=== PATIENT | female | born 1985 | race Caucasian/White ===

== ENCOUNTER 2017-03-21 14:42 | Emergency (ER) | payer OTHER ==
[~2017-03-21 14:42] MED LIST: AMOXICILLIN500 M3 PO; AMOXICILLIN500 MG PO; ANAPROX DS550 MG PO; AUGMENTIN 875 M1 TAB PO; BIAXIN500 MG PO; CATAFLAM50 MG PO; CIPRODEX 0.3%-7.5 ML OT; CLARITIN10 MG PO; DAYPRO600 M1 PO; FLEXERIL10 MG PO; FLEXERIL5 MG PO; LISINOPRIL10 M1 PO; MOTRIN800 MG PO; MULTI-FLAVOR CH1 CTB PO; NAPROSYN500 MG PO; NKHM; NKHM PO; PERCOCET 325 MG1 TA2 PO; PERCOCET 325 MG1 TA5 PO; ROBAXIN750 MG PO; ULTRAM50 MG PO; ZOFRAN4 MG PO
[2017-03-21 14:52] VITALS: BP 125/70
[2017-03-21 15:30] LABS: BILIRUBIN NEGATIVE (NEGATIVE); BLOOD 1+ (NEGATIVE); CLARITY SL CLOUDY (CLEAR); COLOR YELLOW (YELLOW); GLUCOSE NEGATIVE (NEGATIVE); KETONE NEGATIVE (NEGATIVE); LEUKO ESTERASE NEGATIVE (NEGATIVE); NITRITE NEGATIVE (NEGATIVE); SPECIFIC GRAVITY >= 1.030 (1.005-1.030)
[2017-03-21 15:51] LABS: BACTERIA 4+; RBC 0-2 rbc/hpf (0-2)
[2017-03-21] MEDS ORDERED: VIBRAMYCIN100 MG PO (15:58)
[2017-03-21] MEDS ORDERED: ANAPROX DS550 MG PO (15:58)
== END 2017-03-21 16:17 | disposition home or self-care (01) ==
LOC: ED 14:42
PROVIDERS: Physician Assistant
DX: N30.01 Acute cystitis with hematuria (principal)

== ENCOUNTER 2017-05-27 15:39 | Emergency (ER) | payer OTHER ==
[~2017-05-27] VITALS: Wt 59.0 kg
[~2017-05-27 15:39] MED LIST changes: +VIBRAMYCIN100 MG PO
[2017-05-27] MEDS ORDERED: RITALIN LA20 MG PO (15:47)
[2017-05-27 15:50] VITALS: BP 120/63
== END 2017-05-27 16:08 | disposition home or self-care (01) ==
LOC: ED 15:39
DX: L50.9 Urticaria, unspecified (principal); Z87.440 Personal history of urinary (tract) infections; Z79.899 Other long term (current) drug therapy

== ENCOUNTER 2017-05-30 16:35 | Emergency (ER) | payer OTHER ==
[~2017-05-30] VITALS: Ht 162.5 cm; Wt 59.0 kg
[~2017-05-30 16:35] MED LIST changes: +RITALIN LA20 MG PO
[2017-05-30 16:43] VITALS: BP 129/90
[2017-05-30] MEDS ORDERED: ANAPROX DS550 MG PO (18:13)
[2017-05-30] MEDS ORDERED: ROBAXIN500 M1 PO (18:13)
== END 2017-05-30 18:28 | disposition home or self-care (01) ==
LOC: ED 16:35
DX: S16.1XXA Strain of muscle, fascia and tendon at neck level, initial encounter (principal); M54.5 Low back pain; Z79.899 Other long term (current) drug therapy; V43.52XA Car driver injured in collision with other type car in traffic accident, initial encounter; Y93.89 Activity, other specified; Y92.89 Other specified places as the place of occurrence of the external cause; Y99.8 Other external cause status

== ENCOUNTER 2017-06-14 21:53 | Emergency (ER) | payer OTHER ==
[~2017-06-14] VITALS: Ht 162.5 cm; Wt 61.2 kg
--- NOTE | ~2017-06-14 | EKG ---
[place], [place] ELECTROCARDIOGRAM REPORT NAME: CARI GUTIERREZ UNIT #: [id number] ROOM: DOCTOR: MELLO DICKSON MD BIRTHDATE: [birth year] DOS: 06/14/2017 TIME: 2301 hours. IMPRESSION: 1. Normal sinus rhythm at 86 beats per minute. 2. Short [place] interval. 3. No evidence of ischemia or infarction. 4. When compared with an ECG done at 2204 hours of the same day, no significant change has become evident. MELLO DICKSON MD CM:EKGRPT:ELECTROCARDIOGRAM REPORT [id number] MELLO DICKSON MD
--- NOTE | ~2017-06-14 | EKG ---
[place], [place] ELECTROCARDIOGRAM REPORT NAME: CARI GUTIERREZ UNIT #: [id number] ROOM: DOCTOR: MELLO DICKSON MD BIRTHDATE: [birth year] DOS: 06/14/2017 TIME: 2236 hours. IMPRESSION: 1. Normal sinus rhythm at 96 beats per minute. 2. Short [place] interval. 3. The tracing is otherwise normal. 4. No significant change from the ECG done about half an hour earlier. MELLO DICKSON MD CM:EKGRPT:ELECTROCARDIOGRAM REPORT [id number] MELLO DICKSON MD
--- NOTE | ~2017-06-14 | EKG ---
[place], [place] ELECTROCARDIOGRAM REPORT NAME: CARI GUTIERREZ UNIT #: [id number] ROOM: DOCTOR: MELLO DICKSON MD BIRTHDATE: [birth year] DOS: 06/14/2017 TIME: 2204 hours. IMPRESSION: 1. Sinus tachycardia at 103 beats per minute. 2. The tracing is normal. 3. No previous tracing is available for comparison. MELLO DICKSON MD CM:EKGRPT:ELECTROCARDIOGRAM REPORT [id number] MELLO DICKSON MD
[~2017-06-14 21:53] MED LIST changes: +ROBAXIN500 M1 PO
[2017-06-14 22:09] LABS: BASO # 0.1 10*3/uL (0.0-0.1); BASO % 0.9 % (0.0-1.0); EOS # 0.2 10*3/uL (0.0-0.4); EOS % 2.8 % (1.0-4.0); HEMATOCRIT 41.5 % (37.0-47.0); HEMOGLOBIN 13.6 g/dl (12.0-16.0); LYMPH # 1.2 10*3/uL (1.3-4.4); LYMPH % 20.9 % (27.0-41.0); MEAN CORPUSCULAR HGB 29.8 pg (27.0-31.0); MEAN CORPUSCULAR HGB CONC 32.8 g/dl (33.0-37.0); MEAN PLATELET VOLUME 9.6 fl (9.6-12.3); MONO # 0.3 10*3/uL (0.1-1.0); MONO % 5.6 % (3.0-9.0); NEUT % 69.3 % (47.0-73.0); PLATELET COUNT AUTOMATED 241 10*3/uL (130-400); RED BLOOD COUNT 4.56 10*6/uL (4.10-5.10); RED CELL DISTRI WIDTH 12.7 % (0-14.5); WHITE BLOOD COUNT 5.7 10*3/uL (4.8-10.8)
[2017-06-14 22:19] LABS: ACT PARTIAL THROMBO TIME 25.1 SECONDS (20.8-31.5); INTERNATIONAL NORM RATIO 1.1 (2.0-3.5)
[2017-06-14 22:26] LABS: ALBUMIN 4.2 gm/dl (3.1-4.5); ALKALINE PHOSPHATASE 63 U/L (45-117); BUN 10 mg/dl (7-24); CHLORIDE 103 mmol/L (98-107); CREATININE 0.79 mg/dL (0.55-1.02); POTASSIUM 3.6 mmol/L (3.5-5.1); SGOT/AST 7 IU/L (3-35); SGPT/ALT 14 U/L (12-78); SODIUM 139 mmol/L (136-145); TOTAL PROTEIN 7.8 gm/dL (6.4-8.2)
[2017-06-14 22:27] LABS: TROPONIN I < 0.015 ng/ml (<0.045)
[2017-06-14] MEDS ORDERED: KETOROLAC10 MG PO (23:16)
[2017-06-14 23:20] VITALS: BP 133/87
== END 2017-06-14 23:49 | disposition home or self-care (01) ==
LOC: ED 21:53
PROVIDERS: Emergency Medicine Emergency Medical Services
DX: R07.89 Other chest pain (principal); R42 Dizziness and giddiness; M54.5 Low back pain; R11.0 Nausea

== ENCOUNTER 2018-02-11 21:58 | Emergency (ER) | payer OTHER ==
[~2018-02-11] VITALS: Wt 59.0 kg
[~2018-02-11 21:58] MED LIST changes: +KETOROLAC10 MG PO
[2018-02-11 22:00] VITALS: BP 113/71
[2018-02-11 22:32] LABS: BILIRUBIN 1+ (NEGATIVE); BLOOD 3+ (NEGATIVE); CLARITY CLOUDY (CLEAR); COLOR RED (YELLOW); GLUCOSE NEGATIVE (NEGATIVE); KETONE TRACE (NEGATIVE); LEUKO ESTERASE TRACE (NEGATIVE); NITRITE POSITIVE (NEGATIVE); PH 7.5 (5.0-9.0); SPECIFIC GRAVITY 1.015 (1.005-1.030); UROBILINOGEN >= 8.0 E.U./dl (0.2-1.0)
[2018-02-11 22:41] LABS: RBC TNTC rbc/hpf (0-2)
[2018-02-11] MEDS ORDERED: AMINOPHYLLIN200 MG PO (22:50)
[2018-02-11] MEDS ORDERED: PYRIDIUM200 M1 PO (22:50)
[2018-02-27] MEDS ORDERED: ADDERALL 30 MG30 MG PO (19:29)
[2018-02-27] MEDS ORDERED: PERCOCET 5-3251 EACH PO (19:30)
[2018-02-27] MEDS ORDERED: JUNEL 1 MG-201 EACH PO (19:32)
== END 2018-02-11 22:56 | disposition home or self-care (01) ==
LOC: ED 21:58
PROVIDERS: Physician Assistant
DX: N39.0 Urinary tract infection, site not specified (principal); R31.9 Hematuria, unspecified; Z98.890 Other specified postprocedural states

== ENCOUNTER 2018-02-24 07:38 | Emergency (ER) | payer OTHER ==
[~2018-02-24] VITALS: Ht 162.5 cm; Wt 59.0 kg
[~2018-02-24 07:38] MED LIST changes: +AMINOPHYLLIN200 MG PO; +PYRIDIUM200 M1 PO
[2018-02-24 07:40] VITALS: BP 131/77
[2018-02-24 08:00] LABS: BASO # 0.1 10*3/uL (0.0-0.1); BASO % 0.7 % (0.0-1.0); EOS # 0.2 10*3/uL (0.0-0.4); EOS % 1.4 % (1.0-4.0); HEMATOCRIT 40.3 % (37.0-47.0); HEMOGLOBIN 12.8 g/dl (12.0-16.0); LYMPH # 1.6 10*3/uL (1.3-4.4); LYMPH % 13.6 % (27.0-41.0); MEAN CELL VOLUME 93.7 fl (81.0-99.0); MEAN CORPUSCULAR HGB 29.8 pg (27.0-31.0); MEAN CORPUSCULAR HGB CONC 31.8 g/dl (33.0-37.0); MEAN PLATELET VOLUME 9.8 fl (9.6-12.3); MONO # 0.4 10*3/uL (0.1-1.0); MONO % 2.9 % (3.0-9.0); NEUT # 9.6 10*3/uL (2.3-7.9); PLATELET COUNT AUTOMATED 289 10*3/uL (130-400); WHITE BLOOD COUNT 11.9 10*3/uL (4.8-10.8)
[2018-02-24 08:14] LABS: ALBUMIN 4.2 gm/dl (3.1-4.5); ALKALINE PHOSPHATASE 54 U/L (45-117); BUN 10 mg/dl (7-24); CHLORIDE 105 mmol/L (98-107); CREATININE 1.13 mg/dL (0.55-1.02); LIPASE 175 U/L (73-393); POTASSIUM 3.5 mmol/L (3.5-5.1); SGOT/AST 13 IU/L (3-35); SGPT/ALT 20 U/L (12-78); SODIUM 138 mmol/L (136-145); TOTAL PROTEIN 7.6 gm/dL (6.4-8.2)
[2018-02-24 08:31] LABS: BILIRUBIN 1+ (NEGATIVE); BLOOD 2+ (NEGATIVE); CLARITY CLOUDY (CLEAR); COLOR ORANGE (YELLOW); GLUCOSE 2+ (NEGATIVE); KETONE 1+ (NEGATIVE); NITRITE POSITIVE (NEGATIVE); SPECIFIC GRAVITY 1.025 (1.005-1.030); UROBILINOGEN >= 8.0 E.U./dl (0.2-1.0)
[2018-02-24 08:37] LABS: LEUKO ESTERASE TRACE (NEGATIVE); WBC TNTC wbc/hpf (0-5)
[2018-02-24 08:38] LABS: RBC TNTC rbc/hpf (0-2)
[2018-02-27] MEDS ORDERED: ADDERALL 30 MG30 MG PO (19:29)
[2018-02-27] MEDS ORDERED: PERCOCET 5-3251 EACH PO (19:30)
[2018-02-27] MEDS ORDERED: JUNEL 1 MG-201 EACH PO (19:32)
== END 2018-02-24 09:59 | disposition short-term general hospital (02) ==
LOC: ED 07:38
PROVIDERS: Emergency Medicine
DX: N13.2 Hydronephrosis with renal and ureteral calculous obstruction (principal)

== ENCOUNTER 2018-03-02 16:20 | Emergency (ER) | payer OTHER ==
[~2018-03-02] VITALS: Ht 162.5 cm; Wt 59.0 kg
[2018-03-02 16:20] VITALS: BP 122/77
[~2018-03-02 16:20] MED LIST changes: +ADDERALL 30 MG30 MG PO; +JUNEL 1 MG-201 EACH PO; +PERCOCET 5-3251 EACH PO
[2018-03-02 16:55] LABS: BASO # 0.1 10*3/uL (0.0-0.1); BASO % 1.1 % (0.0-1.0); EOS # 0.4 10*3/uL (0.0-0.4); EOS % 4.7 % (1.0-4.0); HEMATOCRIT 37.7 % (37.0-47.0); HEMOGLOBIN 11.6 g/dl (12.0-16.0); LYMPH # 0.9 10*3/uL (1.3-4.4); LYMPH % 10.5 % (27.0-41.0); MEAN CELL VOLUME 95.4 fl (81.0-99.0); MEAN CORPUSCULAR HGB 29.4 pg (27.0-31.0); MEAN CORPUSCULAR HGB CONC 30.8 g/dl (33.0-37.0); MONO # 0.4 10*3/uL (0.1-1.0); MONO % 4.7 % (3.0-9.0); NEUT # 6.3 10*3/uL (2.3-7.9); NEUT % 78.6 % (47.0-73.0); PLATELET COUNT AUTOMATED 261 10*3/uL (130-400); RED BLOOD COUNT 3.95 10*6/uL (4.10-5.10); RED CELL DISTRI WIDTH 12.8 % (0-14.5); WHITE BLOOD COUNT 8.1 10*3/uL (4.8-10.8)
[2018-03-02 17:14] LABS: ALBUMIN 3.7 gm/dl (3.1-4.5); ALKALINE PHOSPHATASE 53 U/L (45-117); BUN 10 mg/dl (7-24); CHLORIDE 106 mmol/L (98-107); CREATININE 1.26 mg/dL (0.55-1.02); POTASSIUM 3.8 mmol/L (3.5-5.1); SGOT/AST 10 IU/L (3-35); SGPT/ALT 21 U/L (12-78); SODIUM 140 mmol/L (136-145); TOTAL PROTEIN 7.3 gm/dL (6.4-8.2)
[2018-03-02] MEDS ORDERED: MIRALAX17 GM PO (17:57)
[2018-03-02] MEDS ORDERED: ZOFRAN ODT4 MG SL (17:57)
== END 2018-03-02 18:07 | disposition home or self-care (01) ==
LOC: ED 16:20
PROVIDERS: Physician Assistant
DX: N20.0 Calculus of kidney (principal); R11.2 Nausea with vomiting, unspecified; K59.00 Constipation, unspecified; Z87.442 Personal history of urinary calculi

== ENCOUNTER 2019-06-03 21:33 | Emergency (ER) | payer OTHER ==
[~2019-06-03] VITALS: Ht 162.5 cm; Wt 68.0 kg
[~2019-06-03 21:33] MED LIST changes: +MIRALAX17 GM PO; +MONISTAT 11 EACH V; +ZOFRAN ODT4 MG SL
[2019-06-03 21:35] VITALS: BP 132/99
== END 2019-06-03 22:27 | disposition home or self-care (01) ==
LOC: ED 21:33
DX: J06.9 Acute upper respiratory infection, unspecified (principal)

== ENCOUNTER 2019-10-02 18:32 | Emergency (ER) | payer OTHER ==
[~2019-10-02] VITALS: Ht 162.5 cm; Wt 68.0 kg
[2019-10-02 18:39] VITALS: BP 140/82
[2019-10-02] MEDS ORDERED: ZOVIRAX5 GM T (20:22)
[2019-10-02] MEDS ORDERED: VALTREX500 MG PO (20:22)
== END 2019-10-02 20:32 | disposition home or self-care (01) ==
LOC: ED 18:32
DX: J40 Bronchitis, not specified as acute or chronic (principal); K13.79 Other lesions of oral mucosa

== ENCOUNTER 2020-04-13 19:01 | Emergency (ER) | payer OTHER ==
[~2020-04-13] VITALS: Wt 65.8 kg
[~2020-04-13 19:01] MED LIST changes: +VALTREX500 MG PO; +ZOVIRAX5 GM T
[2020-04-13 19:10] VITALS: BP 118/75
== END 2020-04-13 20:26 | disposition home or self-care (01) ==
LOC: ED 19:01
DX: H60.501 Unspecified acute noninfective otitis externa, right ear (principal)

== ENCOUNTER 2020-09-03 13:41 | Emergency (ER) | payer OTHER ==
[~2020-09-03] VITALS: Ht 162.5 cm; Wt 65.8 kg
[2020-09-03 14:54] VITALS: BP 106/72
== END 2020-09-03 14:48 | disposition home or self-care (01) ==
LOC: ED 13:41
DX: R03.0 Elevated blood-pressure reading, without diagnosis of hypertension (principal); R51.9 Headache, unspecified; Z98.890 Other specified postprocedural states; Z87.442 Personal history of urinary calculi

== ENCOUNTER → 2020-09-04 | Outpatient (CLI) | payer OTHER | END | disposition home or self-care (01) | LOC: RAD 12:49 | PROVIDERS: ATTEND Chiropractor Orthopedic | DX: M43.16 Spondylolisthesis, lumbar region (principal); M47.817 Spondylosis without myelopathy or radiculopathy, lumbosacral region; M99.03 Segmental and somatic dysfunction of lumbar region ==

== ENCOUNTER 2020-11-25 12:38 | Emergency (ER) | payer OTHER ==
[~2020-11-25] VITALS: Ht 165.1 cm; Wt 65.8 kg
[2020-11-25 13:51] VITALS: BP 122/78
[2020-11-25 14:46] LABS: BASO # 0.1 10*3/uL (0.0-0.1); BASO % 1.1 % (0.0-1.0); EOS # 0.3 10*3/uL (0.0-0.4); EOS % 5.5 % (1.0-4.0); HEMATOCRIT 33.5 % (37.0-47.0); LYMPH # 1.8 10*3/uL (1.3-4.4); LYMPH % 28.7 % (27.0-41.0); MEAN CELL VOLUME 82.1 fl (81.0-99.0); MEAN CORPUSCULAR HGB CONC 29.3 g/dl (33.0-37.0); MEAN PLATELET VOLUME 9.4 fl (9.6-12.3); MONO # 0.4 10*3/uL (0.1-1.0); NEUT # 3.5 10*3/uL (2.3-7.9); NEUT % 57.4 % (47.0-73.0); PLATELET COUNT AUTOMATED 367 10*3/uL (130-400); RED BLOOD COUNT 4.08 10*6/uL (4.10-5.10); RED CELL DISTRI WIDTH 14.2 % (0-14.5); WHITE BLOOD COUNT 6.2 10*3/uL (4.8-10.8)
[2020-11-25 15:06] LABS: ALBUMIN 3.7 gm/dl (3.1-4.5); ALKALINE PHOSPHATASE 67 U/L (45-117); BUN 11 mg/dl (7-24); CHLORIDE 108 mmol/L (98-107); CREATININE 0.92 mg/dL (0.55-1.02); POTASSIUM 4.4 mmol/L (3.5-5.1); SGOT/AST 9 IU/L (3-35); SGPT/ALT 14 U/L (12-78); SODIUM 142 mmol/L (136-145); TOTAL PROTEIN 7.2 gm/dL (6.4-8.2)
[2020-11-25 15:10] LABS: TROPONIN I < 0.015 ng/ml (<0.045)
== END 2020-11-25 16:52 | disposition home or self-care (01) ==
LOC: ED 12:38
PROVIDERS: Physician Assistant
DX: R00.2 Palpitations (principal); Z79.899 Other long term (current) drug therapy; Z98.890 Other specified postprocedural states

== ENCOUNTER 2020-12-07 00:04 | Emergency (ER) | payer OTHER ==
[~2020-12-07] VITALS: Ht 162.5 cm; Wt 68.0 kg
[2020-12-07 00:24] VITALS: BP 143/100
[2020-12-08] MEDS ORDERED: NAPROSYN500 MG PO (20:25)
== END 2020-12-07 03:07 | disposition home or self-care (01) ==
LOC: ED 00:04
DX: S00.03XA Contusion of scalp, initial encounter (principal); S00.83XA Contusion of other part of head, initial encounter; Z79.899 Other long term (current) drug therapy; Z87.442 Personal history of urinary calculi; Z98.890 Other specified postprocedural states; Y04.2XXA Assault by strike against or bumped into by another person, initial encounter; Y93.89 Activity, other specified; Y92.098 Other place in other non-institutional residence as the place of occurrence of the external cause; Y99.8 Other external cause status

== ENCOUNTER 2020-12-08 19:44 | Emergency (ER) | payer OTHER ==
[~2020-12-08] VITALS: Ht 165.1 cm; Wt 68.0 kg
[2020-12-08 20:16] VITALS: BP 124/82
[2020-12-08] MEDS ORDERED: NAPROSYN500 MG PO (20:25)
== END 2020-12-08 20:40 | disposition home or self-care (01) ==
LOC: ED 19:44
DX: R68.84 Jaw pain (principal); Z79.899 Other long term (current) drug therapy; Z98.890 Other specified postprocedural states

== ENCOUNTER → 2021-04-14 | Outpatient (CLI) | payer OTHER | END | disposition home or self-care (01) | LOC: COVID19 16:44 | PROVIDERS: ATTEND Hospitalist | DX: Z11.52 Encounter for screening for COVID-19 (principal) ==

== ENCOUNTER 2021-06-14 15:50 | Emergency (ER) | payer OTHER ==
[2021-06-14 16:06] VITALS: BP 114/73
== END 2021-06-14 18:52 | disposition home or self-care (01) ==
LOC: ED 15:50
DX: R51.9 Headache, unspecified (principal); Z20.822 Contact with and (suspected) exposure to COVID-19; R11.10 Vomiting, unspecified

== ENCOUNTER 2021-06-23 10:52 | Emergency (ER) | payer OTHER ==
[2021-06-23] MEDS ORDERED: PREDNISONE20 M1 PO (13:50)
[2021-06-23] MEDS ORDERED: ZITHROMAX250 MG PO (13:50)
[2021-06-23] MEDS ORDERED: PROVENTIL HFA6.7 GM INH (13:50)
[2021-06-23 14:15] VITALS: BP 140/89
== END 2021-06-23 15:57 | disposition home or self-care (01) ==
LOC: ED 10:52
DX: U07.1 COVID-19 (principal); J12.82 Pneumonia due to coronavirus disease 2019

== ENCOUNTER → 2021-08-13 | Outpatient (CLI) | payer OTHER ==
[~2021-08-13] MED LIST changes: +PREDNISONE20 M1 PO; +PROVENTIL HFA6.7 GM INH; +ZITHROMAX250 MG PO
== END | disposition home or self-care (01) ==
LOC: RAD 16:36
PROVIDERS: ATTEND Pediatrics
DX: S89.91XA Unspecified injury of right lower leg, initial encounter (principal); X58.XXXA Exposure to other specified factors, initial encounter; Y93.89 Activity, other specified; Y92.89 Other specified places as the place of occurrence of the external cause; Y99.8 Other external cause status

== ENCOUNTER 2022-06-28 02:35 | Emergency (ER) | payer OTHER ==
[~2022-06-28] VITALS: Ht 165.1 cm; Wt 65.8 kg
[2022-06-28 02:48] VITALS: BP 123/80
[2022-06-28 03:06] LABS: BILIRUBIN Negative (Negative); BLOOD Negative (Negative); CLARITY Clear (Clear); COLOR Yellow (Yellow); GLUCOSE Negative (Negative); KETONE Negative (Negative); LEUKO ESTERASE Negative (Negative); NITRITE Negative (Negative); PH 6.5 (4.5-8.0); SPECIFIC GRAVITY <= 1.005 (1.001-1.030); UROBILINOGEN 0.2 E.U./dl (0.0-1.0)
[2022-06-28 03:14] LABS: RBC 0-2 rbc/hpf (0-2)
[2022-06-28] MEDS ORDERED: BENZONATATE100 M1 PO (06:14)
== END 2022-06-28 06:24 | disposition home or self-care (01) ==
LOC: ED 02:35
PROVIDERS: Emergency Medicine
DX: J40 Bronchitis, not specified as acute or chronic (principal); M54.50 Low back pain, unspecified; Z98.890 Other specified postprocedural states

== ENCOUNTER 2024-01-08 21:10 | Emergency (ER) | payer OTHER ==
[~2024-01-08] VITALS: Ht 162.5 cm; Wt 65.8 kg
[~2024-01-08 21:10] MED LIST changes: +BENZONATATE100 M1 PO
[2024-01-08 21:34] VITALS: BP 143/80
[2024-01-08] MEDS ORDERED: Ketorolac Tromethamine 30 MG/ML VIAL IM ONE (22:10)
== END 2024-01-08 22:19 | disposition home or self-care (01) ==
LOC: ED 21:10
DX: M26.621 Arthralgia of right temporomandibular joint (principal); Z87.442 Personal history of urinary calculi; Z98.890 Other specified postprocedural states

== ENCOUNTER 2024-01-10 18:55 | Emergency (ER) | payer OTHER ==
[~2024-01-10] VITALS: Ht 165.1 cm; Wt 65.8 kg
[2024-01-10 19:11] VITALS: BP 152/61
[2024-01-10] MEDS ORDERED: SODIUM CHLORIDE 0.9% 1,000 ML IV ONE ×2 (19:15)
[2024-01-10] MEDS ORDERED: Ondansetron Hydrochloride 4 MG/2 ML VIAL IV ONE (19:15)
[2024-01-10] MEDS ORDERED: Ondansetron4 MG PO (22:05)
== END 2024-01-10 22:35 | disposition home or self-care (01) ==
LOC: ED 18:55
DX: R11.2 Nausea with vomiting, unspecified (principal); R00.0 Tachycardia, unspecified; Z79.899 Other long term (current) drug therapy; Z98.890 Other specified postprocedural states; Z87.442 Personal history of urinary calculi

== ENCOUNTER 2024-06-05 00:30 | Emergency (ER) | payer OTHER ==
[~2024-06-05] VITALS: Ht 162.5 cm; Wt 61.2 kg
[~2024-06-05 00:30] MED LIST changes: +Ondansetron4 MG PO
[2024-06-05 00:51] VITALS: BP 132/90
[2024-06-05 01:28] LABS: BILIRUBIN Negative (Negative); BLOOD Negative (Negative); CLARITY Clear (Clear); COLOR Yellow (Yellow); GLUCOSE Negative (Negative); KETONE Negative (Negative); LEUKO ESTERASE 2+ (Negative); NITRITE Negative (Negative); SPECIFIC GRAVITY 1.015 (1.001-1.030)
[2024-06-05 01:55] LABS: BACTERIA 2+; WBC 16-20 wbc/hpf (0-5)
[2024-06-05] MEDS ORDERED: Ciprofloxacin Hydrochloride 500 MG TAB PO ONE (02:45)
[2024-06-05] MEDS ORDERED: PYRIDIUM200 M1 PO (02:45)
[2024-06-05] MEDS ORDERED: Phenazopyridine Hydrochlorid2 100 MG TAB PO ONE (02:45)
[2024-06-05] MEDS ORDERED: CIPRO500 MG PO (02:45)
== END 2024-06-05 03:02 | disposition home or self-care (01) ==
LOC: ED 00:30
PROVIDERS: Emergency Medicine
DX: N39.0 Urinary tract infection, site not specified (principal); B95.2 Enterococcus as the cause of diseases classified elsewhere; Z87.442 Personal history of urinary calculi; Z98.890 Other specified postprocedural states

== ENCOUNTER 2024-06-11 14:40 | Emergency (ER) | payer OTHER ==
[~2024-06-11] VITALS: Wt 60.3 kg
[~2024-06-11 14:40] MED LIST changes: +CIPRO500 MG PO
[2024-06-11 14:54] VITALS: BP 130/84
[2024-06-11] MEDS ORDERED: VIBRAMYCIN100 MG PO (17:11)
[2024-06-11] MEDS ORDERED: Water, Sterile 10 ML VIAL ONE (17:32)
== END 2024-06-11 17:29 | disposition home or self-care (01) ==
LOC: ED 14:40
DX: A54.9 Gonococcal infection, unspecified (principal); Z87.442 Personal history of urinary calculi; Z98.890 Other specified postprocedural states

== ENCOUNTER 2024-10-03 03:43 | Emergency (ER) | payer OTHER ==
[~2024-10-03] VITALS: Ht 162.5 cm; Wt 59.0 kg
[2024-10-03 03:57] VITALS: BP 159/98
[2024-10-03] MEDS ORDERED: Ondansetron Hydrochloride 4 MG TAB SL ONE (04:00)
[2024-10-03] MEDS ORDERED: PENICILLIN V POTASSIUM 500 MG TAB PO ONE (04:00)
[2024-10-03] MEDS ORDERED: Acetaminophen/Hydrocodone 5 MG/325 MG TABLET PO ONE (04:00)
[2024-10-03] MEDS ORDERED: PENICILLIN VK500 MG PO (04:03)
== END 2024-10-03 04:15 | disposition home or self-care (01) ==
LOC: ED 03:43
DX: K02.9 Dental caries, unspecified (principal); R22.0 Localized swelling, mass and lump, head; Z87.442 Personal history of urinary calculi; Z98.890 Other specified postprocedural states

== ENCOUNTER 2025-01-25 04:16 | Emergency (ER) | payer OTHER ==
[~2025-01-25] VITALS: Ht 162.5 cm; Wt 65.8 kg
[~2025-01-25 04:16] MED LIST changes: +PENICILLIN VK500 MG PO
[2025-01-25 04:41] VITALS: BP 146/100
[2025-01-25 05:29] LABS: BILIRUBIN Negative (Negative); BLOOD 3+ (Negative); CLARITY Cloudy (Clear); COLOR Yellow (Yellow); GLUCOSE Negative (Negative); KETONE Trace (Negative); LEUKO ESTERASE Trace (Negative); NITRITE Negative (Negative); PH 6.5 (4.5-8.0)
[2025-01-25 05:37] LABS: MUCOUS 2+; RBC TNTC rbc/hpf (0-2)
[2025-01-25 05:53] LABS: BASO # 0.1 10*3/uL (0.0-0.1); BASO % 1.3 % (0.0-1.0); EOS # 0.3 10*3/uL (0.0-0.4); EOS % 3.7 % (1.0-4.0); MEAN CELL VOLUME 82.9 fl (81.0-99.0); MEAN CORPUSCULAR HGB 24.6 pg (27.0-31.0); MEAN CORPUSCULAR HGB CONC 29.7 g/dl (33.0-37.0); MEAN PLATELET VOLUME 9.3 fl (9.6-12.3); MONO # 0.5 10*3/uL (0.1-1.0); MONO % 6.7 % (3.0-9.0); NEUT # 4.8 10*3/uL (2.3-7.9); NEUT % 67.8 % (47.0-73.0); PLATELET COUNT AUTOMATED 326 10*3/uL (130-400); RED BLOOD COUNT 3.98 10*6/uL (4.10-5.10); RED CELL DISTRI WIDTH 16.9 % (0-14.5)
[2025-01-25 06:06] LABS: BUN 9 mg/dl (9-23); CHLORIDE 106 mmol/L (98-107); POTASSIUM 3.7 mmol/L (3.4-5.1)
[2025-01-25] MEDS ORDERED: PERCOCET 5-3251 EACH PO ×2 (06:57→16:54)
[2025-01-25] MEDS ORDERED: Acetaminophen/Oxycodone 5 MG/325 MG TABLET PO ONE (07:00)
== END 2025-01-25 07:06 | disposition home or self-care (01) ==
LOC: ED 04:16
PROVIDERS: Emergency Medicine
DX: N20.0 Calculus of kidney (principal); Z79.899 Other long term (current) drug therapy; Z98.890 Other specified postprocedural states